=== PATIENT | female | born 1955 | race African-American/Black ===

== ENCOUNTER 2020-10-05 07:35 | Emergency (ER) | payer MEDICARE, OTHER, SELFPAY ==
--- NOTE | ~2020-10-05 | XR_ITS ---
XR lumbar spine 2-3V DATE: 10/05/2020 08:24 INDICATION: Fall. Generalized low back pain. TECHNIQUE: AP, lateral, coned lateral lumbosacral views COMPARISON: 07/08/2014 lumbar spine FINDINGS: There is prominent degenerative change at the apophyseal joints of the lumbar spine with as sociated grade 1 anterolisthesis at L4-5 and L5-S1. No fracture or bone destruction of the lumbar spine is evident. The lumbar pedicles are intact. The s acroiliac joints are intact. Lumbar and lumbosacral interspaces are relatively preserved. There is mi nimal degenerative spurring at L3-4 primarily. IMPRESSION: No fracture is evident Degenerative changes at the apophyseal joints with associated grade 1 anterolisthesis at L4-5 and L5- S1 Reviewed, dictated and finalized at location A. [employer]NAL FINANCIAL PLANNER IMPRESSION: No fracture is evident Degenerative changes at the apophyseal joints with associated grade 1 anterolis thesis at L4-5 and L5-S1
--- NOTE | ~2020-10-05 | XR_ITS ---
XR hip LT 2V w AP pelvis DATE: 10/05/2020 08:25 INDICATION: Fall. Generalized left hip pain TECHNIQUE: AP pelvis. AP and lateral views of left hip COMPARISON: None FINDINGS: Mild degenerative spurring at the left hip consistent with mild osteoarthritis. No fracture, dislocation, avascular necrosis or bone destruction of the left hip is evident. The pubic symphysis and sacroiliac joints are intact. No pelvic fracture or bone destruction is detec constance. IMPRESSION: Left hip osteoarthritis No pelvic or left hip fracture or dislocation Reviewed, dictated and finalized at location A. S BULB MACHINE ADJUSTER
--- NOTE | ~2020-10-05 | XR_ITS ---
XR knee LT min 4V DATE: 10/05/2020 08:24 INDICATION: Medial pain following fall TECHNIQUE: 4 views COMPARISON: None FINDINGS: No fracture or dislocation or joint effusion. Osteochondromatosis of the proximal fibular diametaphysis. Joint spaces are well preserved. No radiopaque intra-articular loose body or chondrocalcinosis. IMPRESSION: No fracture or dislocation or joint effusion Osteochondromas of proximal fibula Reviewed, dictated and finalized at location A. ET RESEARCH INTERN
--- NOTE | ~2020-10-05 | XR_ITS ---
XR ankle LT min 3V DATE: 10/05/2020 08:24 INDICATION: Fall. Dorsal pain and wound TECHNIQUE: 4 views COMPARISON: None FINDINGS: Plantar and posterior calcaneal enthesopathy. No fracture or dislocation of the ankle or disruption of the ankle mortise is detected. No periosteal reaction or bone destruction. IMPRESSION: No fracture or dislocation Calcaneal enthesopathy Reviewed, dictated and finalized at location A. ON WEAVER
[2020-10-05 07:36] VITALS: BP 152/81; PULSE 100; RESP 16; TEMP 35.8; O2SAT 100
--- NOTE | 2020-10-05 07:53 | ED.FALL ---
HPI - Fall General Chief Complaint: Fall Stated Complaint: FALL FROM ICE, L LEG PAIN Time Seen by Provider: 10/05/20 07:44 Source: patient Mode of arrival: ambulatory Limitations: no limitations History of Present Illness HPI Narrative: This patient is a 65 year old female who presents for evaluation of left leg pain s/p fall. She states she slipped this morning and it caused her to fall backwards. She states she fell with his left twisted backwards. She was able to initially get up and ambulate so she went to work. While she was at work, she states she was having left ankle and left knee pain with ambulation. She has not taken anything for pain. She denies hitting her head or LOC. She denies rib pain or sob. She does reports mild low back pain but she denies knee pain. She denies taking blood thinners. Related Data Allergies Allergy/AdvReac Type Severity Reaction Status Date / Time No Known Allergies Allergy Verified 10/05/20 08:20 Review of Systems Review of Systems: All systems reviewed & are unremarkable except as noted in HPI and below [facility] Past Medical History Medical History (Updated 10/05/20 @ 09:35 by Leidy Tejeda MD) Hypertension Hypomagnesemia Neuropathy Surgical History Surgical History (Updated 10/05/20 @ 07:54 by Leidy Tejeda MD) H/O: hysterectomy Social History Social History (Updated 10/05/20 @ 07:54 by Leidy Tejeda MD) Smoking status: Never smoker Alcohol intake: current Alcohol use details: occasional Exam Const: General: no acute distress and alert Orientation/consciousness: patient oriented x3 HENMT: Head: normocephalic and atraumatic Face and sinus: face symmetric Mouth: Yes Normal oral and palatal mucosa present and Yes oropharynx normal Eyes: Pupils: Equal, round and reactive pupils present EOM: EOMs intact bilaterally Neck: Neck: normal visual inspection Chest: Chest palpation & inspection: normal inspection of the chest and no tenderness Resp: Effort & Inspection: normal respiratory effort and no use of accessory muscles Auscultation: clear to auscultation bilaterally Cardio: Rate: regular rate Rhythm: regular rhythm Heart sounds: no murmurs GI: GI Palp: Yes Soft to palpation, No Tenderness to palpation present (GI) and No Guarding due to palpation present (GI) Auscultation: normal bowel sounds Skin: Other: abrasion to left anterior ankle Neuro: General: patient oriented x3 and moves all extremities Extrem: Other: TTP left lateral ankle. Pain to left ankle with flexion. Psych: Mental Status: mental status grossly normal Affect: normal affect Course Reevaluation(s) Reevaluation #1: I discussed with patient xray results including osteochrondroma but no fractures. She will be given crutches and carrie bandage Date: 10/05/20 Time: 09:33 Vital Signs Vital signs: Vital Signs Temperature 96.4 F L 10/05/20 07:36 Pulse Rate 100 10/05/20 07:36 Respiratory Rate 16 10/05/20 07:36 Blood Pressure 152/81 H 10/05/20 07:36 Pulse Oximetry 100 10/05/20 07:36 Temperature 96.4 F L 10/05/20 07:36 Pulse Rate 88 10/05/20 09:52 Respiratory Rate 15 10/05/20 09:52 Blood Pressure 154/72 H 10/05/20 09:52 Pulse Oximetry 100 10/05/20 09:52 MDM - Fall Imaging Data Radiologist's impression: ITS Impressions Knee X-Ray 10/05/20 08:53 IMPRESSION: No fracture or dislocation or joint effusion Osteochondromas of proximal fibula Lumbar Spine X-Ray 10/05/20 08:55 IMPRESSION: No fracture is evident Degenerative changes at the apophyseal joints with associated grade 1 anterolisthesis at L4-5 and L5-S1 Ankle X-Ray 10/05/20 08:57 IMPRESSION: No fracture or dislocation Calcaneal enthesopathy Hip/Pelvis X-Ray 10/05/20 08:58 IMPRESSION: Left hip osteoarthritis No pelvic or left hip fracture or dislocation Discharge Plan Discharge Clinical Impression
[2020-10-05] MEDS: IBUPROFEN 600 MG TABLET PO (08:21)
[2020-10-05] MEDS: ONDANSETRON HCL ODT 4 MG TABLET PO (08:21)
[2020-10-05] MEDS: HYDROcodone/acetaminophen (*CRX) 5-325 MG TABLET 1 TAB PO (08:21)
[2020-10-05 09:08] VITALS: BP 163/78; PULSE 82; RESP 15; O2SAT 100
[2020-10-05 09:52] VITALS: BP 154/72; PULSE 88; RESP 15; O2SAT 100
== END 2020-10-05 09:53 | disposition home or self-care (01) ==
PROVIDERS: Emergency Provider General Practice; PCP Family Medicine
DX: S93.402A Sprain of unspecified ligament of left ankle, initial encounter (principal); M16.12 Unilateral primary osteoarthritis, left hip; I10 Essential (primary) hypertension; G62.9 Polyneuropathy, unspecified; M77.32 Calcaneal spur, left foot; D16.22 Benign neoplasm of long bones of left lower limb; W01.0XXA Fall on same level from slipping, tripping and stumbling without subsequent striking against object, initial encounter
CPT/HCPCS: 72100; 73502; 73564; 73610; 99284; A9270

== ENCOUNTER 2024-03-29 10:24 | Outpatient (CLI) | payer MEDICARE, OTHER, SELFPAY ==
[2024-03-29 11:00] LABS: Alanine Aminotransferase 37 U/L (6-35); Aspartate Amino Transferase 76 U/L (14-36)
== END 2024-03-29 10:25 | disposition home or self-care (01) ==
PROVIDERS: PCP Family Medicine; Visit Provider Podiatrist Foot & Ankle Surgery
DX: B35.1 Tinea unguium (principal)
CPT/HCPCS: 36415; 84450; 84460